=== PATIENT | female | born 1970 | race African-American/Black ===

== ENCOUNTER → 2020-10-30 | Emergency (ER) | payer BC ==
[~2020-10-30] MED LIST: Acetaminophen 325 MG TAB PO PRN; Amlodipine 10 MG TAB PO SCH; Famotidine 20 MG TAB PO SCH; HYDROcodone/Acetaminophen 5/325 mg Tablet PO PRN; hydrALAZINE 20 MG/ML VIAL SLOW IVP PRN; metroNIDAZOLE 500 MG TAB PO SCH
[2020-10-30 15:59] LABS: Troponin I Less than 0.010 ng/mL (< 0.028)
[2020-10-30 18:53] LABS: Troponin I Less than 0.010 ng/mL (< 0.028)
== END | disposition home or self-care (01) ==
LOC: CSHERS 14:17
DX: R07.9 Chest pain, unspecified (principal); I10 Essential (primary) hypertension; A59.9 Trichomoniasis, unspecified; J45.909 Unspecified asthma, uncomplicated
CPT/HCPCS: 36415; 93005